=== PATIENT | female | born 1965 | race Two or more races ===

== ENCOUNTER 2016-09-03 17:36 | Emergency (ER) | payer BC ==
[2016-09-03 17:43] VITALS: BP 143/101
--- NOTE | 2016-09-03 18:03 | ER Document Report ---
ED Medical Screen (RME) - General Mode of Arrival: Ambulatory Information source: Patient TRAVEL OUTSIDE OF THE [place] IN LAST 30 DAYS: No - HPI Patient complains to provider of: Headache and numbness to bilateral fingers Onset: This evening Associated Symptoms: Other - see notes above <NETO JAMES - Last Filed: 09/03/16 19:11> <SHE REZA - Last Filed: 09/03/16 19:22> - General Chief Complaint: Headache Stated Complaint: HEADACHE,BODY NUMBNESS Notes: 51 year old female with history of migraines presents to the ED complaining of a headache and numbness to the bilateral fingers that started earlier this afternoon. Patient states that she has had migraines since she was 9, and 3 years ago they stopped, but returned in June 2016. Patient took an over the counter medication that relieved her headache. Patient states that she is having some shortness of breath, and denies being anxious. Patient was seen by her primary 2 weeks ago and diagnosed with hypertension. Patient is currently taking Clonidine to manage that. (NETO JAMES) - Related Data Allergies/Adverse Reactions: No Known Allergies Allergy (Verified 09/03/16 17:39) Past Medical History - General Information source: Patient - Past Medical History Cardiac Medical History: Reports: Hx Hypertension Pulmonary Medical History: Denies: Hx Tuberculosis Neurological Medical History: Reports: Hx Migraine Renal/ Medical History: Denies: Hx Peritoneal Dialysis Musculoskeltal Medical History: Reports Hx Arthritis - RA Past Surgical History: Reports: Hx Tonsillectomy - Immunizations Hx Diphtheria, Pertussis, Tetanus Vaccination: Yes <NETO JAMES - Last Filed: 09/03/16 19:11> Review of Systems - Review of Systems Constitutional: No symptoms reported EENT: No symptoms reported Cardiovascular: No symptoms reported Respiratory: See HPI, Short of breath Gastrointestinal: No symptoms reported Genitourinary: No symptoms reported Female Genitourinary: No symptoms reported Musculoskeletal: No symptoms reported Skin: No symptoms reported Hematologic/Lymphatic: No symptoms reported Neurological/Psychological: See HPI, Headaches, Numbness - bilateral fingers -: Yes All other systems reviewed and negative <NETO JAMES - Last Filed: 09/03/16 19:11> Physical Exam - Vital signs Interpretation: Normal, Other - Stable vitals - General General appearance: Alert In distress: None - Respiratory Respiratory status: No respiratory distress Breath sounds: Normal - Cardiovascular Rhythm: Regular Heart sounds: Normal auscultation - Extremities General upper extremity: Normal inspection, Normal ROM General lower extremity: Normal inspection, Normal ROM - Psychological Associated symptoms: Anxious <NETO JAMES - Last Filed: 09/03/16 19:11> <SHE REZA - Last Filed: 09/03/16 19:22> - Vital signs Vitals: Temp Pulse Resp BP Pulse Ox 97.8 F 98 24 H 143/101 H 100 09/03/16 17:41 09/03/16 17:41 09/03/16 17:41 09/03/16 17:41 09/03/16 17:41 Course - Laboratory Result Diagrams: 09/03/16 18:15 09/03/16 18:15 <NETO JAMES - Last Filed: 09/03/16 19:11> - Laboratory Result Diagrams: 09/03/16 18:15 09/03/16 18:15 <SHE REZA - Last Filed: 09/03/16 19:22> - Re-evaluation Re-evalutation: 09/03/16 19:22 I personally performed the services described in the documentation, reviewed and edited the documentation which was dictated to the scribe in my presence, and it accurately records my words and actions. (SHE REZA) - Vital Signs Vital signs: Temp Pulse Resp BP Pulse Ox 97.8 F 98 24 H 143/101 H 100 09/03/16 17:41 09/03/16 17:41 09/03/16 17:41 09/03/16 17:41 09/03/16 17:41 - Laboratory Laboratory results interpreted by me: 09/03/16 18:15 Glucose 119 H Calcium 10.3 H Scribe Documentation - Scribe Written by Abbi:: Abbi Sampson, 09/03/2016 1818 acting as scribe for :: Chary <NETO JAMES - Last Filed: 09/03/16 19:11>
[2016-09-03 18:36] LABS: ABSOLUTE EOSINOPHILS # (AUTO) 0.1 10^3/uL (0.0-0.6); ABSOLUTE LYMPHOCYTES (AUTO) 2.7 10^3/uL (0.5-4.7); ABSOLUTE MONOCYTES (AUTO) 0.5 10^3/uL (0.1-1.4); ABSOLUTE NEUT (AUTO) 4.4 10^3/uL (1.7-8.2); BASOPHILS % (AUTO) 0.3 % (0-2); EOSINOPHILS % (AUTO) 1.3 % (0-6); HEMATOCRIT 41.8 % (36.0-47.0); HEMOGLOBIN 14.6 g/dL (12.0-15.5); LYMPHOCYTES % (AUTO) 34.6 % (13-45); MEAN CORPUSCULAR HEMOGLOBIN 29.1 pg (27.0-33.4); MEAN CORPUSCULAR HGB CONC 34.8 g/dL (32.0-36.0); MEAN CORPUSCULAR VOLUME 84 fl (80-97); RED CELL DISTRIBUTION WIDTH 12.1 % (11.5-14.0); SEGMENTED NEUTROPHILS % (AUTO) 56.8 % (42-78); WHITE BLOOD COUNT 7.7 10^3/uL (4.0-10.5)
[2016-09-03 18:54] LABS: ALANINE AMINOTRANSFERASE 32 U/L (9-52); ALBUMIN 4.7 g/dL (3.5-5.0); ALKALINE PHOSPHATASE 65 U/L (38-126); ANION GAP 14 (5-19); ASPARTATE AMINO TRANSFERASE 29 U/L (14-36); BILIRUBIN,DIRECT 0.1 mg/dL (0.0-0.4); BILIRUBIN,TOTAL 0.9 mg/dL (0.2-1.3); BLOOD UREA NITROGEN 13 mg/dL (7-20); CALCIUM 10.3 mg/dL (8.4-10.2); CARBON DIOXIDE 25 mmol/L (22-30); CHLORIDE 102 mmol/L (98-107); CREATINE KINASE 93 U/L (30-135); CREATININE RESULT 0.69 mg/dL (0.52-1.25); GLUCOSE 119 mg/dL (75-110); POTASSIUM 3.8 mmol/L (3.6-5.0); SODIUM 141.3 mmol/L (137-145); TOTAL PROTEIN 7.2 g/dL (6.3-8.2)
[2016-09-03 19:06] LABS: CREATINE KINASE MB 1.55 ng/mL (<4.55)
[2016-09-03 19:10] LABS: TROPONIN I < 0.012 ng/mL
--- NOTE | 2016-09-04 22:05 | EKG REPORT ---
SEVERITY:- NORMAL ECG - SINUS RHYTHM : Confirmed by: Amie Dukes MD 04-Sep-2016 22:05:08
== END 2016-09-03 22:40 | disposition left against medical advice (07) ==
LOC: ER 17:36
DX: Z53.9 Procedure and treatment not carried out, unspecified reason (principal); R51 Headache; R20.0 Anesthesia of skin; R06.02 Shortness of breath; Z79.899 Other long term (current) drug therapy
CPT/HCPCS: 36415; 71020; 80053; 82550; 82553; 84443; 84484; 85025; 93005; 93010; 99281

== ENCOUNTER 2016-09-03 23:23 | Emergency (ER) | payer BC ==
--- NOTE | 2016-09-04 06:18 | ER Document Report ---
ED General - General Chief Complaint: High Blood Pressure Stated Complaint: POSSIBLE BLOOD PRESSURE ISSUES TRAVEL OUTSIDE OF THE [place] IN LAST 30 DAYS: No - HPI Patient complains to provider of: elevated blood pressure Notes: Patient coming in for evaluation of elevated blood pressure. Patient was recent seen here for similar complaints that time patient reported that she was on clonidine. Patient today states that she was on clonidine one time took 1 dose up slightly made her feel and therefore stopped it. Patient was recent seen at a local urgent care when climbing was given. Patient otherwise is asymptomatic denies any fevers chills nausea vomiting chest pain abdominal pain patient looks well hydrated nontoxic upon my evaluation - Related Data Allergies/Adverse Reactions: No Known Allergies Allergy (Verified 09/04/16 01:45) Past Medical History - Social History Smoking Status: Unknown if Ever Smoked Family History: CAD Patient has suicidal ideation: No Patient has homicidal ideation: No - Past Medical History Cardiac Medical History: Reports: Hx Hypertension Pulmonary Medical History: Denies: Hx Tuberculosis Neurological Medical History: Reports: Hx Migraine Renal/ Medical History: Denies: Hx Peritoneal Dialysis Musculoskeltal Medical History: Reports Hx Arthritis - RA Past Surgical History: Reports: Hx Tonsillectomy - Immunizations Hx Diphtheria, Pertussis, Tetanus Vaccination: Yes Review of Systems - Review of Systems Constitutional: Other - Elevated blood pressure EENT: No symptoms reported Cardiovascular: No symptoms reported Respiratory: No symptoms reported Gastrointestinal: No symptoms reported Genitourinary: No symptoms reported Female Genitourinary: No symptoms reported Musculoskeletal: No symptoms reported Skin: No symptoms reported Hematologic/Lymphatic: No symptoms reported Neurological/Psychological: No symptoms reported -: Yes All other systems reviewed and negative Physical Exam - Vital signs Vitals: Temp Pulse Resp BP Pulse Ox 97.7 F 71 15 176/108 H 99 09/04/16 01:45 09/04/16 01:45 09/04/16 01:45 09/04/16 01:45 09/04/16 01:45 Interpretation: Hypertensive - General General appearance: Appears well, Alert - HEENT Head: Normocephalic, Atraumatic Eyes: Normal Pupils: PERRL - Respiratory Respiratory status: No respiratory distress Chest status: Nontender Breath sounds: Normal Chest palpation: Normal - Cardiovascular Rhythm: Regular Heart sounds: Normal auscultation Murmur: No - Abdominal Inspection: Normal Distension: No distension Bowel sounds: Normal Tenderness: Nontender Organomegaly: No organomegaly - Back Back: Normal, Nontender - Extremities General upper extremity: Normal inspection, Nontender, Normal color, Normal ROM , Normal temperature General lower extremity: Normal inspection, Nontender, Normal color, Normal ROM , Normal temperature, Normal weight bearing. No: Vasquez's sign - Neurological Neuro grossly intact: Yes Cognition: Normal Orientation: AAOx4 Clint Coma Scale Eye Opening: Spontaneous Jose E Coma Scale Verbal: Oriented Clint Coma Scale Motor: Obeys Commands Clint Coma Scale Total: 15 Speech: Normal Motor strength normal: LUE, RUE, LLE, RLE Sensory: Normal - Psychological Associated symptoms: Normal affect, Normal mood - Skin Skin Temperature: Warm Skin Moisture: Dry Skin Color: Normal Course - Re-evaluation Re-evalutation: 09/04/16 13:43 Patient coming in for evaluation of hypertension. EKG does not show any significant etiology patient otherwise is a systematic. Will start patient on hydrochlorothiazide encouraged patient to follow-up primary care physicians for further evaluation of her hypertension. - Vital Signs Vital signs: Temp Pulse Resp BP Pulse Ox 97.7 F 70 16 169/94 H 95 09/04/16 01:45 09/04/16 06:29 09/04/16 06:29 09/04/16 06:29 09/04/16 06:29 Discharge - Discharge Clinical Impression: Hypertension Qualifiers: Hypertension type: essential hypertension Qualified Code(s): I10 - Essential ( primary) hypertension Condition: Good Disposition: HOME, SELF-CARE Instructions: High Blood Pressure, Requiring Treatment ([facility]) Additional Instructions: Please follow-up tomorrow primary care physicians provided. Take medications as prescribed. Return to the ER symptoms worsen. It Is very important that she follow-up primary care physician to follow-up with to manage her high blood pressure. Prescriptions: Hydrochlorothiazide 12.5 mg PO DAILY #14 capsule Forms: Elevated Blood Pressure, Return to Work
[2016-09-04 06:30] VITALS: BP 169/94
--- NOTE | 2016-09-04 22:05 | EKG REPORT ---
SEVERITY:- NORMAL ECG - SINUS RHYTHM : Confirmed by: Amie Dukes MD 04-Sep-2016 22:05:03
== END 2016-09-04 06:36 | disposition home or self-care (01) ==
LOC: ER 23:23
DX: I10 Essential (primary) hypertension (principal)
CPT/HCPCS: 93005; 93010; 99283

== ENCOUNTER → 2017-06-09 | Outpatient (CLI) | payer BC, MEDICAID ==
--- NOTE | 2017-06-09 16:33 | WOMENS IMAGING REPORT ---
EXAM DESCRIPTION: BONE DENSITY HIP/SPINE COMPLETED DATE/TIME: 06/09/2017 1:28 pm REASON FOR STUDY: ENCOUNTER FOR SCREENING FOR OSTEOPROSIS; Z13.820 M05.9 RHEUMATOID ARTHRITIS WITH RHEUMATOID FACTOR, UNSPECIFI Z13.820 ENCOUNTER FOR SCREENING FOR OSTEOPOROSIS COMPARISON: None. TECHNIQUE: Dual-Energy X-ray Absorptiometry (DEXA) of the AP Spine and Hip. LIMITATIONS: None. FINDINGS: LUMBAR SPINE: The bone mineral density (BMD) measured from L1-L4 in the AP projection correlates with a T-score of -1.6, which is osteopenia as defined by the World Health Organization. HIP: The bone mineral density (BMD) measured in the left hip correlates with a T-score of -1.7, which is o steopenia as defined by the World Health Organization. IMPRESSION: 1. LUMBAR SPINE: Osteopenia 2. HIP: Osteopenia COMMENT: The World Health Organization defines low BMD as follows: T-score: Normal: Greater than -1.0 Osteopenia: Between -1.0 and -2.5 Osteoporosis: Less than -2.5 without fractures Established osteoporosis: Less than -2.5 with fractures In general, you may wish to consider: Diagnosis Treatment Follow-up DEXA Normal BMD Prevention 2-3 years Osteopenia Prevention/Therapy 1-2 years Osteoporosis Therapy Yearly TECHNICAL DOCUMENTATION: JOB ID: [id number]- All Rights Reserved
== END ==
LOC: WI 13:09
PROVIDERS: ATTEND Internal Medicine
DX: Z13.820 Encounter for screening for osteoporosis (principal); M85.88 Other specified disorders of bone density and structure, other site; M05.9 Rheumatoid arthritis with rheumatoid factor, unspecified
CPT/HCPCS: 77080